=== PATIENT | female | born 1950 | race Two or more races ===

== ENCOUNTER 2022-11-26 09:45 | Inpatient (IN) | payer OTHER ==
[~2022-11-26] VITALS: Ht 160 cm; Wt 49.9 kg
[~2022-11-26 09:45] MED LIST: COZAAR25 MG PO
[2022-11-26] MEDS ORDERED: [UNRECOGNIZED DRUG - OTHER] PO (13:46)
[2022-11-26] MEDS ORDERED: PROGESTE PO (13:47)
[2022-12-03] MEDS ORDERED: MIRALAX510 GM (14:59)
[2022-12-03] MEDS ORDERED: OPTIMAL D3 M350 MCG (14:59)
[2022-12-03] MEDS ORDERED: REPATHA SU140 MG/1 M (14:59)
[2022-12-03] MEDS ORDERED: PROGESTERONE100 M1 (15:01)
[2022-12-05] MEDS ORDERED: ULTRACET PO (13:47)
[2022-12-05] MEDS ORDERED: INTESTINEX680 M1 PO (13:48)
== END 2022-12-05 15:16 | disposition home or self-care (01) | DRG 331 ==
LOC: O/R 12-02 06:47 → SURH 12-02 06:47
PROVIDERS: ADMIT Surgery; ATTEND Surgery
PROC: 07BB4ZZ Excision of Mesenteric Lymphatic, Percutaneous Endoscopic Approach (ICD-10-PCS; 2022-12-02)
PROC: 0DTF4ZZ Resection of Right Large Intestine, Percutaneous Endoscopic Approach (ICD-10-PCS; principal; 2022-12-02 08:30)
DX: D12.2 Benign neoplasm of ascending colon (principal); D12.1 Benign neoplasm of appendix; R59.0 Localized enlarged lymph nodes; Z20.822 Contact with and (suspected) exposure to COVID-19; N73.6 Female pelvic peritoneal adhesions (postinfective); N99.4 Postprocedural pelvic peritoneal adhesions